=== PATIENT | female | born 1995 | race Hispanic/Latino ===

== ENCOUNTER 2019-05-02 17:01 | Emergency (ER) | payer SELFPAY ==
--- NOTE | 2019-05-02 17:19 | Emergency Department Report ---
Blank Doc - Documentation Documentation: This is a 23-year-old female that presents with dysuria and right flank pain. This initial assessment/diagnostic orders/clinical plan/treatment(s) is/are subject to change based on patient's health status, clinical progression and re- assessment by fellow clinical providers in the ED. Further treatment and workup at subsequent clinical providers discretion. Patient/guardians urged not to elope from the ED as their condition may be serious if not clinically assessed and managed. Initial orders include: 1- Patient sent to [facility] for further evaluation and treatment 2- UA
[2019-05-02 17:57] LABS: HCG Qualitative,Urine Positive (Negative)
[2019-05-02 18:00] LABS: Bacteria,Urine 4+ /HPF (Negative); Bilirubin,Urine NEG (Negative); Blood,Urine NEG (Negative); Color,Urine Yellow (Yellow); Mucus,Urine 2+ /HPF; Protein,Urine <15 mg/dL mg/dL (Negative); Urobilinogen,Urine < 2.0 mg/dL (<2.0)
--- NOTE | 2019-05-02 19:18 | Emergency Department Report ---
ED Female HPI - General Chief complaint: Urogenital-Female Stated complaint: POSS UTI/PAIN Time Seen by Provider: 05/02/19 17:18 Source: patient Mode of arrival: Ambulatory Limitations: No Limitations - History of Present Illness Initial comments: 23-year-old female, doesn't emergency department complaining of a one- week history of flank pain associated with dysuria, increased urinary urgency increased urinary frequency, decreased urinary production. States she gets frequent urinary tract infections. Also had a home test was may have been slightly positive was she wanted to have recheck as well. She reports no vaginal bleeding, no nausea, no vomiting, no chest pain, palpitations. She reports no vaginal discharge. Her urine is dark and concentrated MD Complaint: dysuria, pelvic pain -: Gradual Location: suprapubic Radiation: non-radiating Consistency: constant Improves with: none Associated Symptoms: dysuria. denies: vaginal discharge, vaginal bleeding, abdominal pain, nausea/vomiting, fever/chills, loss of appetite, hematuria, rash, seizure, shortness of breath, syncope, weakness - Related Data Previous Rx's Medication Instructions Recorded Last Taken Type Nitrofurantoin [place]/M-Cryst 100 mg PO Q12HR #14 capsule 05/02/19 Unknown Rx [Macrobid CAP] 21/Iron Fu/Folic Acid 1 each PO DAILY #30 tablet 05/02/19 Unknown Rx [ Complete Caplet] Allergies Allergy/AdvReac Type Severity Reaction Status Date / Time No Known Allergies Allergy Unverified 05/02/19 17:20 ED Review of Systems ROS: Stated complaint: POSS UTI/PAIN Other details as noted in HPI Comment: All other systems reviewed and negative ED Past Medical Hx - Past Medical History Previous Medical History?: No - Surgical History Past Surgical History?: Yes Additional Surgical History: tonsilectomy - Social History Smoking Status: Never Smoker Substance Use Type: Alcohol - Medications Home Medications: Home Medications Medication Instructions Recorded Confirmed Last Taken Type Nitrofurantoin [place]/M-Cryst 100 mg PO Q12HR #14 capsule 05/02/19 Unknown Rx [Macrobid CAP] 21/Iron Fu/Folic Acid 1 each PO DAILY #30 tablet 05/02/19 Unknown Rx [ Complete Caplet] ED Physical Exam - General Limitations: No Limitations General appearance: alert, in no apparent distress - Head Head exam: Present: atraumatic, normocephalic - Eye Eye exam: Present: normal appearance, PERRL, EOMI - ENT ENT exam: Present: normal exam, normal orophraynx, mucous membranes moist - Neck Neck exam: Present: normal inspection, full ROM - Respiratory Respiratory exam: Present: normal lung sounds bilaterally. Absent: respiratory distress - Cardiovascular Cardiovascular Exam: Present: regular rate, normal rhythm. Absent: systolic murmur, diastolic murmur, rubs, gallop - GI/Abdominal GI/Abdominal exam: Present: soft, normal bowel sounds - Extremities Exam Extremities exam: Present: normal inspection - Back Exam Back exam: Present: normal inspection. Absent: CVA tenderness (R), CVA tenderness (L), paraspinal tenderness, vertebral tenderness - Neurological Exam Neurological exam: Present: alert, oriented X3, CN II-XII intact, normal gait - Psychiatric Psychiatric exam: Present: normal affect, normal mood - Skin Skin exam: Present: warm, dry, intact, normal color. Absent: rash ED Course Vital Signs 05/02/19 17:18 Temperature 98.4 F Pulse Rate 85 Respiratory 18 Rate Blood Pressure 120/81 O2 Sat by Pulse 98 Oximetry Critical care attestation.: If time is entered above; I have spent that time in minutes in the direct care of this critically ill patient, excluding procedure time. ED Disposition Clinical Impression: UTI (urinary tract infection), Positive urine test Disposition: TO HOME OR SELFCARE Is pt being admited?: No Does the pt Need Aspirin: No Condition: Stable Instructions: Dysuria (ED), (ED) Prescriptions: Nitrofurantoin [place]/M-Cryst [Macrobid CAP] 100 mg PO Q12HR #14 capsule 21/Iron Fu/Folic Acid [ Complete Caplet] 1 each PO DAILY #30 tablet Referrals: PERCY CHRISTIANSON MD [Primary Care Provider] - 3-5 Days
[2019-05-02 20:20] VITALS: BP 123/75
== END 2019-05-02 19:58 | disposition home or self-care (01) ==
LOC: ED 17:01
DX: N39.0 Urinary tract infection, site not specified (principal); Z32.01 Encounter for pregnancy test, result positive; Z90.89 Acquired absence of other organs
CPT/HCPCS: 81001; 81025; 99283

== ENCOUNTER 2020-03-10 17:21 | Emergency (ER) | payer MEDICAID ==
[2020-03-10 17:32] VITALS: BP 146/79
--- NOTE | 2020-03-10 18:35 | Emergency Department Report ---
Chief Complaint: Extremity Injury, Lower Stated Complaint: LFT ANKLE/LFT KNEE PAIN Time Seen by Provider: 03/10/20 18:17 - HPI History of Present Illness: Patient is a 24-year-old female presents emergency room with complaints of left ankle pain that began last week. She states that she stepped on a toy and inverted her ankle. She states that she has been using RICE therapy. She states that she has some discomfort with ambulating but is able to ambulate. She denies any edema, numbness, weakness. On exam: No bony tenderness to palpation of the left ankle, foot, toes, mild tenderness to palpation present to the left lateral ankle behind the malleolus, Achilles tendon is intact, no edema, no ecchymosis, no deformity, full range of motion of the left ankle, foot, toes, neurovascularly intact No signs of acute traumatic fracture or dislocation Patient is presenting with left ankle sprain, no signs of joint laxity Patient placed in Job bandage by nurse and remained neurovascularly intact advised pt May alternate Tylenol or ibuprofen as needed for discomfort. May use ice pack, elevation of the leg, rest, Epson salt bath. Follow-up with orthopedic doctor. May use Job bandage while up and walking but do not wear too tightly and do not wear at night while sleeping. Return to emergency room for any new or worsening symptoms. Medical screening examination performed and there is no threat to life or limb at this time Patient referred to orthopedic doctor Discussed strict return precautions - Exam Vital Signs: Vital Signs 03/10/20 17:25 Temperature 98.4 F Pulse Rate 115 H Respiratory 20 Rate Blood Pressure 146/79 O2 Sat by Pulse 98 Oximetry MSE screening note: Focused history and physical exam performed. ED Disposition for MSE Clinical Impression: Left ankle sprain Qualifiers: Encounter type: initial encounter Involved ligament of ankle: unspecified ligam ent Qualified Code(s): S93.402A - Sprain of unspecified ligament of left ankle, initial encounter Disposition: Z-07 MED SCREENING EXAM-LEFT Is pt being admited?: No Does the pt Need Aspirin: No Condition: Stable Instructions: Ankle Sprain (ED) Additional Instructions: May alternate Tylenol or ibuprofen as needed for discomfort. May use ice pack, elevation of the leg, rest, Epson salt bath. Follow-up with orthopedic doctor. May use Job bandage while up and walking but do not wear too tightly and do not wear at night while sleeping. Return to emergency room for any new or worsening symptoms. Referrals: SUSANNAH CROWE MD [Staff Physician] - 3-5 Days [facility] - 3-5 Days Time of Disposition: 18:34 Print Language: FRENCH
== END 2020-03-10 19:08 | disposition left against medical advice (07) ==
LOC: MERGE 17:21 → ED 17:21
DX: S93.402A Sprain of unspecified ligament of left ankle, initial encounter (principal); Z88.8 Allergy status to other drugs, medicaments and biological substances; X58.XXXA Exposure to other specified factors, initial encounter; Y93.89 Activity, other specified; Y92.89 Other specified places as the place of occurrence of the external cause; Y99.8 Other external cause status
CPT/HCPCS: 99282

== ENCOUNTER 2020-08-16 19:14 | Emergency (ER) | payer MEDICAID ==
[2020-08-16 19:34] VITALS: BP 135/90
--- NOTE | 2020-08-16 20:27 | Emergency Department Report ---
Chief Complaint: Dental/Oral Stated Complaint: CUT ON LIP (INFECTED) Time Seen by Provider: 08/16/20 20:18 - HPI History of Present Illness: Patient is a 24-year-old female presents emergency room with complaints of a lip abrasion that occurred 2 days ago that she wanted to have evaluated. She states that she accidentally caused the abrasion with her teeth. She states initially there was some swelling but has since improved. She states that a small scab formed. She denies any fever, significant drainage, redness, chills, vomiting, any other symptoms. She denies any medication allergies. Vitals are entered incorrectly Patient and patient's daughter were both seen in the ED Patient's daughters heart rate is the one recorded Patient's heart rate is normal On exam: Non toxic appearing, no acute distress atraumatic, normocephalic normal appearance of the eyes, PERRL, EOMI, no periorbital edema or ecchymosis moist mucus membranes, small 0.5 cm abrasion/scab present to the lower lip, no edema, no erythema, no fluctuance, no induration, no bleeding No respiratory distress, no accessory muscle use A&O x4, no focal neuro deficit skin is warm, dry Examination appears consistent with lip abrasion No signs of infection at this time Appears to be healing Advised to follow-up with primary care doctor Discussed supportive care and symptomatic treatment with patient Discussed strict return precautions Medical screening examination performed there is no threat to life or limb at this time - Exam Vital Signs: Vital Signs 08/16/20 19:27 Temperature 98.8 F Pulse Rate 128 H Respiratory 18 Rate Blood Pressure 135/90 O2 Sat by Pulse 97 Oximetry MSE screening note: Focused history and physical exam performed. Due to findings the following was ordered: ED Disposition for MSE Clinical Impression: Lip abrasion Qualifiers: Encounter type: initial encounter Qualified Code(s): S00.511A - Abrasion of lip, initial encounter Disposition: MED SCREENING EXAM-LEFT Is pt being admited?: No Does the pt Need Aspirin: No Condition: Stable Instructions: Abrasion (ED) Additional Instructions: Please keep area clean and dry. Please do warm salt water gargles 3 times a day. May use a small layer of Neosporin but do not get inside the mouth/do not swallow. May take Tylenol or ibuprofen as needed for discomfort. Follow-up with primary care doctor. Return to emergency room for any new or worsening symptoms. Referrals: PRIMARY CARE,MD [Primary Care Provider] - 2-3 Days Time of Disposition: 20:26 Print Language: FILIPINO
== END 2020-08-16 20:41 | disposition left against medical advice (07) ==
LOC: ED 19:14
DX: S00.511A Abrasion of lip, initial encounter (principal); Z53.21 Procedure and treatment not carried out due to patient leaving prior to being seen by health care provider; X58.XXXA Exposure to other specified factors, initial encounter; Y93.89 Activity, other specified; Y92.89 Other specified places as the place of occurrence of the external cause; Y99.8 Other external cause status

== ENCOUNTER 2020-08-19 16:38 | Emergency (ER) | payer MEDICAID ==
--- NOTE | 2020-08-19 16:47 | Emergency Department Report ---
Blank Doc - Documentation Documentation: 24-year-old female that presents with pelvic pain and vaginal bleeding. This initial assessment/diagnostic orders/clinical plan/treatment(s) is/are subject to change based on patient's health status, clinical progression and re- assessment by fellow clinical providers in the ED. Further treatment and workup at subsequent clinical providers discretion. Patient/guardians urged not to elope from the ED as their condition may be serious if not clinically assessed and managed. Initial orders include: 1- Patient sent to [facility] for further evaluation and treatment 2- UA
[2020-08-19 18:19] LABS: Bilirubin,Urine NEG (Negative); Blood,Urine LG (Negative); Color,Urine Yellow (Yellow); HCG Qualitative,Urine Negative (Negative); Mucus,Urine 2+ /HPF; Protein,Urine <15 mg/dL mg/dL (Negative); Urobilinogen,Urine < 2.0 mg/dL (<2.0)
[2020-08-19] MEDS ORDERED: ACETAMINOPHEN 500 MG TAB PO ONE (19:53)
[2020-08-19] MEDS ORDERED: IBUPROFEN 600 MG TAB PO ONE (19:53)
[2020-08-19 20:07] LABS: Basophils % (Auto) 0.3 % (0.0-1.8); Eosinophils # (Auto) 0.1 K/mm3 (0.0-0.4); Eosinophils % (Auto) 0.8 % (0.0-4.3); Hematocrit 34.3 % (30.3-42.9); Hemoglobin 11.4 gm/dl (10.1-14.3); Lymphocytes # (Auto) 3.4 K/mm3 (1.2-5.4); Mean Corpuscular HGB Conc 33 % (30-34); Mean Corpuscular Volume 82 fl (79-97); Monocytes # (Auto) 0.9 K/mm3 (0.0-0.8); Monocytes % (Auto) 9.9 % (0.0-7.3); Platelet Count 381 K/mm3 (140-440); Red Blood Count 4.19 M/mm3 (3.65-5.03); Red Cell Distribution Width 14.6 % (13.2-15.2)
[2020-08-19 20:30] LABS: Alanine Aminotransferase 19 units/L (7-56); Albumin 3.9 g/dL (3.9-5); Blood Urea Nitrogen 12 mg/dL (7-17); Hemolysis Index 6
[2020-08-19 20:33] LABS: BUN/Creatinine Ratio 17
--- NOTE | 2020-08-19 22:08 | Ultrasound Report ---
PELVIC ULTRASOUND INDICATION: Pelvic pain, bleeding TECHNIQUE: Transabdominal FINDINGS: Retroverted uterus measures 9.9 x 5.1 x 4.8 cm. Endometrium measures 7 mm in thickness. No obvious uterine abnormalities are seen though detail is somewhat limited. Right ovary measures 3.7 cm in length and shows no abnormalities. Left ovary measures 3.7 cm in lengt h and shows no abnormalities. No adnexal masses are seen. No free fluid is noted. IMPRESSION: Limited detail but no obvious abnormalities Signer Name: Royce Dave MD Signed: 08/19/2020 10:03 PM Workstation Name: [id number]
--- NOTE | 2020-08-19 22:36 | Emergency Department Report ---
ED Female HPI - General Chief complaint: Vaginal Bleeding Stated complaint: PELVIC PAIN/VAG BLEED Time Seen by Provider: 08/19/20 16:47 Source: patient Mode of arrival: Ambulatory Limitations: No Limitations - History of Present Illness Initial comments: Patient is a A0 24-year-old white female with no past medical history presents to the ED with complaint of acute onset persistent heavy vaginal bleeding for the last 3 days, stating that this is the second time she is having her menstrual cycle in 1 month. Patient states that she has an Nexplanon control implant on her left upper arm and that this is the first time that she has had persistent heavy vaginal bleeding. Patient also complains of suprapubic pressure and pain for the last 1 week. Patient denies dizziness, syncope, dysuria, urinary frequency and urgency, dyspareunia, lightheadedness, chest pain, shortness of breath, nausea, vomiting, vaginal discharge, fever, chills, diarrhea, or cough. MD Complaint: vaginal bleeding, pelvic pain -: Gradual, month(s) (1) Location: suprapubic Radiation: non-radiating Severity: moderate Severity scale (0 -10): 5 Quality: cramping, sharp Consistency: intermittent Improves with: none Worsens with: intercourse, menstrual period Are you Now?: No Associated Symptoms: denies other symptoms, vaginal bleeding, abdominal pain. denies: vaginal discharge, nausea/vomiting, fever/chills, headaches, loss of appetite, dysuria, hematuria, rash, seizure, shortness of breath, syncope, weakness - Related Data Sexually active: Yes : 1 Para: 1 A: 0 Home Medications Medication Instructions Recorded Confirmed Last Taken Iron 1 tab PO DAILY 09/03/18 09/03/18 09/02/18 Previous Rx's Medication Instructions Recorded Last Taken Type Vit Calc,Iron,Folic 1 each PO QDAY #30 tablet 10/16/17 09/03/18 Rx [ Vitamins] Sulfamethoxazole/Trimethoprim 1 each PO BID #14 tablet 12/20/17 Unknown Rx [Bactrim DS TAB] Butalb/Acetaminophen/Caffeine 1 cap PO Q8HR PRN #10 cap 03/09/19 Unknown Rx [Fioricet 50-300-40 mg CAP] Neomycin/Polymyxin B/Hydrocort 4 drops OT QID 7 Days drops.susp 03/09/19 Unknown Rx [Pivombnq-Gpnkuosgd-Ah Ear Susp] Nitrofurantoin Pine/M-Cryst 100 mg PO Q12HR 5 Days #10 capsule 03/09/19 Unknown Rx [Macrobid CAP] Nitrofurantoin Pine/M-Cryst 100 mg PO Q12HR #14 capsule 05/02/19 Unknown Rx [Macrobid CAP] 21/Iron Fu/Folic Acid 1 each PO DAILY #30 tablet 05/02/19 Unknown Rx [ Complete Caplet] Ibuprofen [Motrin] 800 mg PO Q8HR PRN #30 tablet 08/19/20 Unknown Rx Ondansetron [Zofran Odt] 4 mg PO Q6HR PRN #15 tab.rapdis 08/19/20 Unknown Rx metroNIDAZOLE [Flagyl] 500 mg PO Q12HR #14 tab 08/19/20 Unknown Rx traMADoL [Ultram] 50 mg PO Q6HR PRN #12 tablet 08/19/20 Unknown Rx Allergies Allergy/AdvReac Type Severity Reaction Status Date / Time silver Allergy Rash Verified 08/19/20 16:39 ED Review of Systems ROS: Stated complaint: PELVIC PAIN/VAG BLEED Other details as noted in HPI Constitutional: denies: chills, fever Eyes: denies: eye pain, eye discharge, vision change ENT: denies: ear pain, throat pain Respiratory: denies: cough, shortness of breath, wheezing Cardiovascular: denies: chest pain, palpitations Endocrine: no symptoms reported Gastrointestinal: abdominal pain (suprapubic). denies: nausea, vomiting, diarrhea, constipation, hematemesis Genitourinary: abnormal menses (heavy vaginal bleeding). denies: urgency, dysuria, discharge Musculoskeletal: back pain (lower back). denies: joint swelling, arthralgia Skin: denies: rash, lesions Neurological: denies: headache, weakness, paresthesias Psychiatric: denies: anxiety, depression Hematological/Lymphatic: denies: easy bleeding, easy bruising ED Past Medical Hx - Past Medical History Hx Hypertension: No Hx Diabetes: No Hx Deep Vein Thrombosis: No Hx Renal Disease: No Hx Sickle Cell Disease: No Hx Seizures: No Hx Asthma: No Hx HIV: No Additional medical history: Vaginal delivery x 3 - Surgical History Additional Surgical History: tonsillectomy - Social History Smoking Status: Never Smoker Substance Use Type: None - Medications Home Medications: Home Medications Medication Instructions Recorded Confirmed Last Taken Type Vit Calc,Iron,Folic 1 each PO QDAY #30 tablet 10/16/17 09/03/18 09/03/18 Rx [ Vitamins] Sulfamethoxazole/Trimethoprim 1 each PO BID #14 tablet 12/20/17 09/03/18 Unknown Rx [Bactrim DS TAB] Iron 1 tab PO DAILY 09/03/18 09/03/18 09/02/18 History Butalb/Acetaminophen/Caffeine 1 cap PO Q8HR PRN #10 cap 03/09/19 Unknown Rx [Fioricet 50-300-40 mg CAP] Neomycin/Polymyxin B/Hydrocort 4 drops OT QID 7 Days drops.susp 03/09/19 Unknown Rx [Pjwxulrv-Bhlgpjqlx-Zf Ear Susp] Nitrofurantoin Pine/M-Cryst 100 mg PO Q12HR 5 Days #10 capsule 03/09/19 Unknown Rx [Macrobid CAP] Nitrofurantoin Pine/M-Cryst 100 mg PO Q12HR #14 capsule 05/02/19 Unknown Rx [Macrobid CAP] 21/Iron Fu/Folic Acid 1 each PO DAILY #30 tablet 05/02/19 Unknown Rx [ Complete Caplet] Ibuprofen [Motrin] 800 mg PO Q8HR PRN #30 tablet 08/19/20 Unknown Rx Ondansetron [Zofran Odt] 4 mg PO Q6HR PRN #15 tab.rapdis 08/19/20 Unknown Rx metroNIDAZOLE [Flagyl] 500 mg PO Q12HR #14 tab 08/19/20 Unknown Rx traMADoL [Ultram] 50 mg PO Q6HR PRN #12 tablet 08/19/20 Unknown Rx ED Physical Exam - General Limitations: No Limitations General appearance: alert, in no apparent distress - Head Head exam: Present: atraumatic, normocephalic, normal inspection - Eye Eye exam: Present: normal appearance, PERRL, EOMI Pupils: Present: normal accommodation - ENT ENT exam: Present: normal exam, normal orophraynx, mucous membranes moist, TM's normal bilaterally, normal external ear exam - Neck Neck exam: Present: normal inspection, full ROM - Respiratory Respiratory exam: Present: normal lung sounds bilaterally. Absent: respiratory distress, wheezes, rales, rhonchi, chest wall tenderness, accessory muscle use, decreased breath sounds, other - Cardiovascular Cardiovascular Exam: Present: regular rate, normal rhythm, normal heart sounds. Absent: systolic murmur, diastolic murmur, rubs, gallop - GI/Abdominal GI/Abdominal exam: Present: soft, tenderness (Palpable mild suprapubic tenderness), normal bowel sounds. Absent: guarding, rebound, rigid, hyperactive bowel sounds, hypoactive bowel sounds, organomegaly - Bi-manual exam: Present: other (Pelvic exam deferred patient preferred [facility]) - Extremities Exam Extremities exam: Present: normal inspection, full ROM, normal capillary refill - Back Exam Back exam: Present: normal inspection, full ROM. Absent: tenderness, CVA t enderness (R), CVA tenderness (L), muscle spasm, paraspinal tenderness, vertebral tenderness - Neurological Exam Neurological exam: Present: alert, oriented X3, CN II-XII intact, normal gait, reflexes normal - Psychiatric Psychiatric exam: Present: normal affect, normal mood - Skin Skin exam: Present: warm, dry, intact, normal color. Absent: rash ED Course Vital Signs 08/19/20 08/19/20 16:48 20:36 Temperature 97.7 F Pulse Rate 97 H Respiratory 18 18 Rate Blood Pressure 141/95 [Right] O2 Sat by Pulse 98 Oximetry ED Medical Decision Making - Lab Data Result diagrams: 08/19/20 20:00 08/19/20 20:00 - Radiology Data Radiology results: report reviewed, image reviewed Findings [address] [address] Ultrasound Report Signed Patient: LEANA MARADIAGA MR#: [id number] : 1995 Acct:[id number] Age/Sex: 24 / F ADM Date: 08/19/20 Loc: ED Attending Dr: Ordering Physician: CELESTE GREER Date of Service: 08/19/20 Procedure(s): US pelvic complete Accession Number(s): [id number] cc: CELESTE GREER PELVIC ULTRASOUND INDICATION: Pelvic pain, bleeding TECHNIQUE: Transabdominal FINDINGS: Retroverted uterus measures 9.9 x 5.1 x 4.8 cm. Endometrium measures 7 mm in thickness. No obvious uterine abnormalities are seen though detail is somewhat limited. Right ovary measures 3.7 cm in length and shows no abnormalities. Left ovary measures 3.7 cm in length and shows no abnormalities. No adnexal masses are seen. No free fluid is noted. IMPRESSION: Limited detail but no obvious abnormalities Signer Name: Royce Dave MD Signed: 08/19/2020 10:03 PM Workstation Name: [id number] Transcribed By: GJ Dictated By: Royce Dave MD Electronically Authenticated By: Royce Dave MD Signed Date/Time: 08/19/202202 DD/ 01 TD/TT: - Medical Decision Making This is a A0 24-year-old white female with no past medical history presents to the ED with complaint of acute onset persistent heavy vaginal bleeding for the last 3 days, stating that this is the second time she is having her menstrual cycle in 1 month. Patient states that she has an Nexplanon control implant on her left upper arm and that this is the first time that she has had persistent heavy vaginal bleeding. Patient also complains of suprapubic pressure and pain for the last 1 week. In the ED, patient is alert and oriente d x3 and is not in distress. Patient was treated for pain in the ED and lab test results were reviewed and showed no acute abnormalities. Wet prep test was positive for Gardnerella vaginalis. Complete pelvic ultrasound showed no acute abnormalities. Patient was therefore discharged home on pain medications and antibiotics for bacterial vaginosis, and was advised to follow-up with [facility] physician in 5 to 7 days for reevaluation or return to the ED immediately if symptoms get worse. - Differential Diagnosis Dysmenorrhea; Metrorrhagia; BV; Ovarian cyst; UT Critical care attestation.: If time is entered above; I have spent that time in minutes in the direct care of this critically ill patient, excluding procedure time. ED Disposition Clinical Impression: Dysmenorrhea, Menorrhagia with irregular cycle, Bacterial vaginosis, Spasm of muscle of lower back Disposition: - TO HOME OR SELFCARE Is pt being admited?: No Does the pt Need Aspirin: No Condition: Stable Instructions: Bacterial Vaginosis (ED), Dysmenorrhea (ED), Menorrhagia (ED), Muscle Spasm (ED) Additional Instructions: Take medications with food, drink plenty of fluids and follow-up with your primary care physician or [facility] physician in 5 to 7 days for reevaluation. Return to the ED immediately if symptoms get worse. Prescriptions: metroNIDAZOLE [Flagyl] 500 mg PO Q12HR #14 tab Ibuprofen [Motrin] 800 mg PO Q8HR PRN #30 tablet PRN Reason: Pain , Severe (7-10) traMADoL [Ultram] 50 mg PO Q6HR PRN #12 tablet PRN Reason: Pain Ondansetron [Zofran Odt] 4 mg PO Q6HR PRN #15 tab.rapdis PRN Reason: Nausea Referrals: ARLIN ORTEGA MD [Staff Physician] - 3-5 Days Forms: STI Treatment and Prevention Time of Disposition: 22:45 Print Language: YORUBA
[2020-08-19 23:16] VITALS: BP 118/74
== END 2020-08-19 23:20 | disposition home or self-care (01) ==
LOC: ED 16:38
DX: N76.0 Acute vaginitis (principal); B96.89 Other specified bacterial agents as the cause of diseases classified elsewhere; N92.0 Excessive and frequent menstruation with regular cycle; N94.6 Dysmenorrhea, unspecified; M62.838 Other muscle spasm; Z90.89 Acquired absence of other organs; Z79.899 Other long term (current) drug therapy; Z91.09 Other allergy status, other than to drugs and biological substances
CPT/HCPCS: 36415; 76856; 80053; 81001; 81025; 83690; 85025; 87210

== ENCOUNTER 2020-08-28 17:04 | Emergency (ER) | payer MEDICAID ==
[2020-08-28 17:37] VITALS: BP 154/99
--- NOTE | 2020-08-28 19:02 | Emergency Department Report ---
ED ENT HPI - General Chief complaint: Dental/Oral Stated complaint: JAW AND EAR PAIN Time Seen by Provider: 08/28/20 18:50 Source: patient Mode of arrival: Ambulatory Limitations: No Limitations - Related Data Home Medications Medication Instructions Recorded Confirmed Last Taken Iron 1 tab PO DAILY 09/03/18 09/03/18 09/02/18 Previous Rx's Medication Instructions Recorded Last Taken Type Vit Calc,Iron,Folic 1 each PO QDAY #30 tablet 10/16/17 09/03/18 Rx [ Vitamins] Sulfamethoxazole/Trimethoprim 1 each PO BID #14 tablet 12/20/17 Unknown Rx [Bactrim DS TAB] Butalb/Acetaminophen/Caffeine 1 cap PO Q8HR PRN #10 cap 03/09/19 Unknown Rx [Fioricet 50-300-40 mg CAP] Neomycin/Polymyxin B/Hydrocort 4 drops OT QID 7 Days drops.susp 03/09/19 Unknown Rx [Hrvjbvbi-Ikfxsoryf-Pe Ear Susp] Nitrofurantoin Sampson/M-Cryst 100 mg PO Q12HR 5 Days #10 capsule 03/09/19 Unknown Rx [Macrobid CAP] Nitrofurantoin Sampson/M-Cryst 100 mg PO Q12HR #14 capsule 05/02/19 Unknown Rx [Macrobid CAP] 21/Iron Fu/Folic Acid 1 each PO DAILY #30 tablet 05/02/19 Unknown Rx [ Complete Caplet] Ibuprofen [Motrin] 800 mg PO Q8HR PRN #30 tablet 08/19/20 Unknown Rx Ondansetron [Zofran Odt] 4 mg PO Q6HR PRN #15 tab.rapdis 08/19/20 Unknown Rx metroNIDAZOLE [Flagyl] 500 mg PO Q12HR #14 tab 08/19/20 Unknown Rx traMADoL [Ultram] 50 mg PO Q6HR PRN #12 tablet 08/19/20 Unknown Rx Chlorhexidine Mouthwash [Peridex] 15 ml MM BID #240 bottle 08/28/20 Unknown Rx predniSONE [Deltasone] 20 mg PO QDAY #7 tab 08/28/20 Unknown Rx Allergies Allergy/AdvReac Type Severity Reaction Status Date / Time silver Allergy Rash Verified 08/19/20 16:39 ED Dental HPI - General Chief complaint: Dental/Oral Stated complaint: JAW AND EAR PAIN Time Seen by Provider: 08/28/20 18:50 Source: patient Mode of arrival: Ambulatory Limitations: No Limitations - Related Data Home Medications Medication Instructions Recorded Confirmed Last Taken Iron 1 tab PO DAILY 09/03/18 09/03/18 09/02/18 Previous Rx's Medication Instructions Recorded Last Taken Type Vit Calc,Iron,Folic 1 each PO QDAY #30 tablet 10/16/17 09/03/18 Rx [ Vitamins] Sulfamethoxazole/Trimethoprim 1 each PO BID #14 tablet 12/20/17 Unknown Rx [Bactrim DS TAB] Butalb/Acetaminophen/Caffeine 1 cap PO Q8HR PRN #10 cap 03/09/19 Unknown Rx [Fioricet 50-300-40 mg CAP] Neomycin/Polymyxin B/Hydrocort 4 drops OT QID 7 Days drops.susp 03/09/19 Unknown Rx [Uzlcwohy-Qkzkzqvby-Gz Ear Susp] Nitrofurantoin Sampson/M-Cryst 100 mg PO Q12HR 5 Days #10 capsule 03/09/19 Unknown Rx [Macrobid CAP] Nitrofurantoin Sampson/M-Cryst 100 mg PO Q12HR #14 capsule 05/02/19 Unknown Rx [Macrobid CAP] 21/Iron Fu/Folic Acid 1 each PO DAILY #30 tablet 05/02/19 Unknown Rx [ Complete Caplet] Ibuprofen [Motrin] 800 mg PO Q8HR PRN #30 tablet 08/19/20 Unknown Rx Ondansetron [Zofran Odt] 4 mg PO Q6HR PRN #15 tab.rapdis 08/19/20 Unknown Rx metroNIDAZOLE [Flagyl] 500 mg PO Q12HR #14 tab 08/19/20 Unknown Rx traMADoL [Ultram] 50 mg PO Q6HR PRN #12 tablet 08/19/20 Unknown Rx Chlorhexidine Mouthwash [Peridex] 15 ml MM BID #240 bottle 08/28/20 Unknown Rx predniSONE [Deltasone] 20 mg PO QDAY #7 tab 08/28/20 Unknown Rx Allergies Allergy/AdvReac Type Severity Reaction Status Date / Time silver Allergy Rash Verified 08/19/20 16:39 ED Review of Systems ROS: Stated complaint: JAW AND EAR PAIN Other details as noted in HPI Comment: All other systems reviewed and negative ED Past Medical Hx - Past Medical History Previous Medical History?: No Hx Hypertension: No Hx Diabetes: No Hx Deep Vein Thrombosis: No Hx Renal Disease: No Hx Sickle Cell Disease: No Hx Seizures: No Hx Asthma: No Hx HIV: No Additional medical history: Vaginal delivery x 3 - Surgical History Past Surgical History?: Yes Additional Surgical History: tonsillectomy - Social History Smoking Status: Former Smoker Substance Use Type: None - Medications Home Medications: Home Medications Medication Instructions Recorded Confirmed Last Taken Type Vit Calc,Iron,Folic 1 each PO QDAY #30 tablet 10/16/17 09/03/18 09/03/18 Rx [ Vitamins] Sulfamethoxazole/Trimethoprim 1 each PO BID #14 tablet 12/20/17 09/03/18 Unknown Rx [Bactrim DS TAB] Iron 1 tab PO DAILY 09/03/18 09/03/18 09/02/18 History Butalb/Acetaminophen/Caffeine 1 cap PO Q8HR PRN #10 cap 03/09/19 Unknown Rx [Fioricet 50-300-40 mg CAP] Neomycin/Polymyxin B/Hydrocort 4 drops OT QID 7 Days drops.susp 03/09/19 Unknown Rx [Ynmcejrp-Wqtduoywr-Ra Ear Susp] Nitrofurantoin Sampson/M-Cryst 100 mg PO Q12HR 5 Days #10 capsule 03/09/19 Unknown Rx [Macrobid CAP] Nitrofurantoin Sampson/M-Cryst 100 mg PO Q12HR #14 capsule 05/02/19 Unknown Rx [Macrobid CAP] 21/Iron Fu/Folic Acid 1 each PO DAILY #30 tablet 05/02/19 Unknown Rx [ Complete Caplet] Ibuprofen [Motrin] 800 mg PO Q8HR PRN #30 tablet 08/19/20 Unknown Rx Ondansetron [Zofran Odt] 4 mg PO Q6HR PRN #15 tab.rapdis 08/19/20 Unknown Rx metroNIDAZOLE [Flagyl] 500 mg PO Q12HR #14 tab 08/19/20 Unknown Rx traMADoL [Ultram] 50 mg PO Q6HR PRN #12 tablet 08/19/20 Unknown Rx Chlorhexidine Mouthwash [Peridex] 15 ml MM BID #240 bottle 08/28/20 Unknown Rx predniSONE [Deltasone] 20 mg PO QDAY #7 tab 08/28/20 Unknown Rx ED Physical Exam - General Limitations: No Limitations General appearance: alert, in no apparent distress - Head Head exam: Present: atraumatic, normocephalic - Eye Eye exam: Present: normal appearance - ENT ENT exam: Present: mucous membranes moist - Neck Neck exam: Present: normal inspection - Respiratory Respiratory exam: Present: normal lung sounds bilaterally. Absent: respiratory distress - Cardiovascular Cardiovascular Exam: Present: regular rate, normal rhythm. Absent: systolic murmur, diastolic murmur, rubs, gallop - GI/Abdominal GI/Abdominal exam: Present: soft, normal bowel sounds - Extremities Exam Extremities exam: Present: normal inspection - Back Exam Back exam: Present: normal inspection - Neurological Exam Neurological exam: Present: alert, oriented X3 - Psychiatric Psychiatric exam: Present: normal affect, normal mood - Skin Skin exam: Present: warm, dry, intact, normal color. Absent: rash ED Course Vital Signs 08/28/20 17:34 Temperature 98 F Pulse Rate 89 Respiratory 16 Rate Blood Pressure 154/99 [Right] O2 Sat by Pulse 98 Oximetry Critical care attestation.: If time is entered above; I have spent that time in minutes in the direct care of this critically ill patient, excluding procedure time. ED Disposition Clinical Impression: Dentalgia Disposition: DC-01 TO HOME OR SELFCARE Is pt being admited?: No Does the pt Need Aspirin: No Condition: Stable Instructions: Tooth Injuries, Temporomandibular Joint Syndrome Prescriptions: predniSONE [Deltasone] 20 mg PO QDAY #7 tab Chlorhexidine Mouthwash [Peridex] 15 ml MM BID #240 bottle Referrals: [facility] [Outside] - 3-5 Days
== END 2020-08-28 19:11 | disposition home or self-care (01) ==
LOC: ED 17:04
DX: K08.89 Other specified disorders of teeth and supporting structures (principal); Z79.899 Other long term (current) drug therapy
CPT/HCPCS: 99281